=== PATIENT | female | born 1970 | race Hispanic/Latino ===

== ENCOUNTER 2023-08-17 09:56 | Emergency (ER) | payer BC, SELFPAY ==
[2023-08-17 09:59] VITALS: BP 169/95
[2023-08-17 11:01] VITALS: BP 124/62
[2023-08-17] MEDS: TORADOL 15 MG IV (11:14)
[2023-08-17] MEDS: MAGNESIUM SULFATE 50 IV (11:14)
[2023-08-17] MEDS: REGLAN 10 MG IV (11:14)
--- NOTE | 2023-08-17 11:34 | ED.GENMED ---
History of Present Illness
General
Chief Complaint: Headache
Time Seen by Provider: 08/17/23 10:08
History of Present Illness
History of Present Illness:
53-year-old female with history of hypertension and hypothyroidism presents to the emergency department for evaluation of intractable headaches for the past 2 weeks. She also notes associated tinnitus during this time and has been seeing an ear
nose and throat physician for this. Is scheduled to have an MRI of her brain tomorrow due to the symptoms but due to lack of pain control she opted to come to the emergency department today. Describes a sharp pain in the left occiput that radiates
to the forehead. Took naproxen at 4 AM with no relief. Denies any nausea or vomiting. Denies any extremity weakness or speech difficulty. No gait instability.
Review of Systems
Review of Systems
Allergies reviewed?: Yes
All Other Systems: ROS reviewed and negative except as documented in HPI and ROS
Phy Exam
Physical Exam
Physical Exam:
GEN: Well appearing, NAD, WDWN
HEENT: Oral mucosa moist, no scleral icterus, no nasal congestion
Cardiac: Regular rate
Lung: No respiratory distress, no tachypnea
MSK: No gross deformity or injuries
Skin: Good color, no pallor or jaundice, no rashes
Neuro: AO x3; CN II-XII grossly intact. BUE strength 5/5 in all tamez, sensation intact and symmetric. BLE strength 5/5 in all tamez, sensation intact and symmetric
Psych: Calm, cooperative
Course
Orders/Labs/Results
Orders:
Orders
08/17/23 11:08
CT Head W/o Iv Contrast Urgent
Comment:
Reason For Exam: intractable headache
Ketorolac [Toradol] 15 mg IV NOW STA
Magnesium Sulfate 2 Gram/50 ml [Magnesium Sulfate] 2 gram in 50 ml IV NOW
Metoclopramide [Reglan] 10 mg IV NOW STA
08/17/23 13:35
Valproate Sodium [Depacon] 500 mg 0.9% Sodium Chloride 50 ml [Nss] 50 ml IV NOW
Vital Signs
Initial and Last Documented VS:
Initial Vital Signs
Temp Pulse Resp BP Pulse Ox
98.5 F 63 16 169/95 98
08/17/23 09:59 08/17/23 09:59 08/17/23 09:59 08/17/23 09:59 08/17/23 09:59
Last Documented Vital Signs
Temp Pulse Resp BP Pulse Ox
98.5 F 62 18 124/62 98
08/17/23 09:59 08/17/23 11:01 08/17/23 11:01 08/17/23 11:01 08/17/23 11:01
MDM/Problems Addressed
MDM/Problems Addressed:
Patient with ongoing headache for the past 2 weeks. She has no focal neurologic symptoms, nevertheless given the persistence of the headache a CT of the head was obtained evidence for intracranial pathology. She improved mildly with migraine
medications in the emergency department. Duration of symptoms coupled with lack of fevers or neck stiffness is reassuring against meningitis. Given that she has outpatient follow-up for MRI tomorrow do not see any need for hospitalization,
recommend outpatient primary care and neurology follow-up as well
*Critical Care Note
Total Time (30-74mins, 75-104mins- exclusive of procedures): Not Applicable
ED Attending Note
-
Portions of this chart may have been created with voice recognition software.� Occasional wrong word or��sound alike� substitutions may have occurred due to the inherent limitations of voice recognition software.
Discharge Plan
Departure
Patient Disposition: Home (Routine Discharge)
Date of Disposition: 08/17/23
Time of Disposition: 14:28
Patient with high blood pressure during this ER visit?: No
Discharge Problem:
Acute intractable headache
Instructions: Headache, Adult (DC)
Prescriptions:
New
wvreumeubf-ntflbrqrpsaea-txcr [Fioricet] 50-300-40 mg capsule
1 cap PO Q8H PRN (Reason: Pain) Qty: 15 0RF
Referrals:
Storm Mahmood, DO [Family Provider] -
Interventions
Interventions:
*Risk Screen - Suicide Last Done: 08/17/23 11:01
*General Assessment Last Done: 08/17/23 11:01
*Neglect/Abuse Screening Last Done: 08/17/23 11:01
*ED COVID-19 Vaccine History Last Done: 08/17/23 09:59
ED- Neurological Assessment Last Done: 08/17/23 11:01
Discharge Date and Time
Print Language: THAI
[2023-08-17] MEDS: DEPACON 55 MG IV (13:51)
== END 2023-08-17 14:45 | disposition home or self-care (01) ==
LOC: EMR 09:56
PROVIDERS: EMERGENCY PHYSICIAN Emergency Medicine; FAMILY PHYSICIAN Family Medicine
DX: R51.9 Headache, unspecified (principal); I10 Essential (primary) hypertension; E03.9 Hypothyroidism, unspecified
CPT/HCPCS: 99284; 96365; 96367; 96375; 70450

== ENCOUNTER 2023-08-21 09:43 | Emergency (ER) | payer BC, SELFPAY ==
[2023-08-21 09:47] VITALS: BP 135/84
--- NOTE | 2023-08-21 10:23 | ED.GENMED ---
History of Present Illness
General
Chief Complaint: Headache
Source: patient
Exam Limitations: none
Time Seen by Provider: 08/21/23 10:01
History of Present Illness
History of Present Illness:
53-year-old female presents with significant persistent headache that is worse when she stands. This is been ongoing for 2 to 3 weeks. She was here 4 days ago and had a negative CT scan. She had minimal relief with migraine cocktail. She
followed up with her neurologist and had an MRI of her brain as an outpatient which demonstrated evidence of CSF leak. Patient saw the neurologist this morning and was sent to the hospital for a blood patch. She has a history of Sjogren's. She is
on Plaquenil. She notes a posterior headache without vision change. No current nausea. No paresthesias to the arms or legs. She denies neck pain or fever. No other complaints at this
Phy Exam
Physical Exam
Physical Exam:
General: Well-appearing female sitting in dark room
HEENT: Normocephalic atraumatic pupils equal round reactive to light
: Regular rate and rhythm no murmurs
Lungs: Clear no wheeze or rales
Musculoskeletal exam: No nuchal rigidity. Spine is nontender
Neurologic: Good station to the upper and lower extremities alert and oriented x 3
Skin is warm no rash or lesions
Extremities: No cyanosis or edema
Course
Vital Signs
Initial and Last Documented VS:
Initial Vital Signs
Temp Pulse Resp BP Pulse Ox
98.6 F 67 18 135/84 97
08/21/23 09:47 08/21/23 09:47 08/21/23 09:47 08/21/23 09:47 08/21/23 09:47
Last Documented Vital Signs
Temp Pulse Resp BP Pulse Ox
98.6 F 67 18 135/84 97
08/21/23 09:47 08/21/23 09:47 08/21/23 09:47 08/21/23 09:47 08/21/23 09:47
MDM/Problems Addressed
Differential Diagnosis Includes:
Persistent headache. Reviewed prior records including CT scan from 4 days ago. This showed no acute traumatic finding. I also reviewed the patient's MRI report as an outpatient. This was reviewed through the patient's [employer] system on her
telephone. This demonstrated finding consistent with CSF leak.
Patient sent in by neurology for blood patch. Relayed information via [facility] text to anesthesia
*Critical Care Note
Total Time (30-74mins, 75-104mins- exclusive of procedures): Not Applicable
Update Note
Update Note:
I discussed findings with anesthesiology. Our department here in this hospital is not comfortable performing a blood patch without a documented dural puncture. They recommended patient be seen at [facility] for further treatment. I then called .
Chris Chambers neurologist and spoke with her directly on the telephone. She recommend the patient be discharged from the emergency room and have her follow-up with [facility] for further treatment including the blood patch and possible
myelogram. I relayed this information to the patient after discussion had with the anesthesiologist and neurologist. She was discharged.
ED Attending Note
-
Portions of this chart may have been created with voice recognition software.� Occasional wrong word or��sound alike� substitutions may have occurred due to the inherent limitations of voice recognition software.
Discharge Plan
Departure
Patient Disposition: Home (Routine Discharge)
Date of Disposition: 08/21/23
Time of Disposition: 11:09
Patient with high blood pressure during this ER visit?: No
Discharge Problem:
Headache
Instructions: Headache, Adult (DC)
Prescriptions:
No Action
polyvinyl alcohol [Natural Tears] 1.4 % Drops
1 drp BOTH EYES TIDPRN PRN (Reason: dry eyes)
Theragen Tablet
1 tab PO DAILY
levothyroxine 75 mcg Tablet
75 mcg PO DAILY
gabapentin 300 mg Capsule
300 mg PO HSPRN PRN (Reason: mild pain)
Patient Comments:
08/21/2023, has not taken since starting Fioricet per pt.
hydroxychloroquine 200 mg Tablet
400 mg PO HS
losartan 100 mg Tablet
100 mg PO HS
Hair, Skin and Nails (biotin) 10,000 mcg Tablet,Chewable
10,000 mcg PO DAILY
Senna Tea
1 dose PO DAILYPRN PRN (Reason: constipation)
magnesium citrate
1 tab PO HS
magnesium glycinate
1 tab PO HS
zhcjgfslzp-fbxwxxxxszfee-dxtd 50-325-40 mg Tablet
1 tab PO Q8HPRN PRN (Reason: headache)
Patient Comments:
08/21/2023, filled on 08/20/2023 for 3 tablets per PDMP.
Referrals:
Storm Mahmood, DO [Family Provider] -
Activity Restrictions/Additional Instructions:
As per your neurologist, please follow-up with [facility] for further evaluation. Return here if needed otherwise
Interventions
Interventions:
*Risk Screen - Suicide Last Done: 08/21/23 09:47
*General Assessment Last Done: 08/21/23 09:47
*Neglect/Abuse Screening Last Done: 08/21/23 09:47
*ED COVID-19 Vaccine History Last Done: 08/21/23 09:47
Discharge Date and Time
Print Language: UPPER SORBIAN
== END 2023-08-21 11:30 | disposition home or self-care (01) ==
LOC: EMR 09:43
PROVIDERS: EMERGENCY PHYSICIAN Emergency Medicine; FAMILY PHYSICIAN Family Medicine
DX: R51.9 Headache, unspecified (principal); M35.00 Sjogren syndrome, unspecified
CPT/HCPCS: 99282